=== PATIENT | male | born 1960 | race Caucasian/White ===

== ENCOUNTER 2021-04-04 10:44 | Day surgery (SDC) | payer BC ==
[2021-03-30 14:01] VITALS: BMI 25.1
[2021-04-04] MEDS ORDERED: PROPOFOL 20 ML ONE ×4 (12:38)
[2021-04-04 17:20] VITALS: TEMP 98
[2021-04-04 17:24] VITALS: BP 110/52; PULSE 57
== END 2021-04-04 13:15 | disposition home or self-care (01) ==
LOC: FASU-ENDO 10:44
PROVIDERS: ATTEND Internal Medicine Gastroenterology
PROC: 0DJD8ZZ Inspection of Lower Intestinal Tract, Via Natural or Artificial Opening Endoscopic (ICD-10-PCS; principal; 2021-04-04 11:45)
DX: R93.3 Abnormal findings on diagnostic imaging of other parts of digestive tract (principal); R10.9 Unspecified abdominal pain; K64.8 Other hemorrhoids

== ENCOUNTER 2023-12-03 08:11 | Day surgery (SDC) | payer BC ==
[2023-10-31 17:43] VITALS: BMI 24.5
[2023-12-03] MEDS ORDERED: LIDOCAINE HCL/PF 2% SDV 5ML VIAL ONE (08:31)
[2023-12-03] MEDS ORDERED: PROPOFOL 120 ML ONE (08:32)
[2023-12-03 10:04] VITALS: TEMP 97.7
[2023-12-03 10:25] VITALS: BP 110/65; PULSE 64
[2023-12-03 10:42] VITALS: RESP 18
== END 2023-12-03 10:30 | disposition home or self-care (01) ==
LOC: FASU-ENDO 08:11
PROVIDERS: ATTEND Internal Medicine Gastroenterology
PROC: 0DJD8ZZ Inspection of Lower Intestinal Tract, Via Natural or Artificial Opening Endoscopic (ICD-10-PCS; principal; 2023-12-03 09:17)
DX: Z12.11 Encounter for screening for malignant neoplasm of colon (principal); K57.30 Diverticulosis of large intestine without perforation or abscess without bleeding; K64.1 Second degree hemorrhoids; K64.8 Other hemorrhoids